=== PATIENT | female | born 1950 | race Caucasian/White ===

== ENCOUNTER 2019-04-01 11:26 | Inpatient (IN) | payer OTHER, BC ==
[~2019-04-01] VITALS: Ht 152.4 cm; Wt 65.3 kg
[2019-04-01] MEDS ORDERED: HYDROCHLOROTHIA25 MG (12:02)
[2019-04-01] MEDS ORDERED: OSEL75CA (12:02)
[2019-04-01] MEDS ORDERED: PROAIR RESPICL90 MCG (12:02)
[2019-04-01] MEDS ORDERED: SPIRIVA RESPIMAT4 G1 (12:02)
[2019-04-01] MEDS ORDERED: ACETYLCYST200 MG/11 PO (12:03)
--- NOTE | 2019-04-01 12:06 | NUR ---
PACIENTE LLEGA EN AMBULACINA CON MASK DE OXIGENO A 2 L/MIN REFIERE INFLUENZA B EL CUAL ES RECIBIDO POR EL DR. ANGEL Y SE ACOMODA EN GIOVANNY K1 CON MONIOTR CARDIACO .
--- NOTE | 2019-04-01 13:16 | NUR ---
PTE EVALUADA POR EL DR ANGEL QUIEN [place]DE[place] EL [place]. SE ORIENTA SOBRE EL MISMO, LO CUAL REFIERE ENTENDER. SE REALIZAN PRUEBAS DE LBAORATORIO Y SE ADMINISTRAN MEDICAMENTOS [place] ORDEN MEDICA Y SIGUIENDO MEDIDAS ASEPTICAS. SE CONECTA A MONITOR CARDIACO Y OXIMETRIA DE P[place] ORDEN EMDICA Y SIGUIENDO MEDIDAS ASEPTICAS. TERAPIAS RESPIRATORIAS Y ABGS NOTIFICADOS A MS CHIU A LAS 12:23PM. SE MANTIENE BAJO OBSERVACION.
== END 2019-04-06 19:13 | disposition home or self-care (01) | DRG 194 ==
LOC: ER 11:26 → SEC-K 16:36 → MEDJ 16:36 → MEDI 04-02 02:00 → MEDJ 04-02 02:53
PROVIDERS: ADMIT Internal Medicine
PROC: 4A033R1 Measurement of Arterial Saturation, Peripheral, Percutaneous Approach (ICD-10-PCS; principal; 2019-04-01)
PROC: 3E0F7GC Introduction of Other Therapeutic Substance into Respiratory Tract, Via Natural or Artificial Opening (ICD-10-PCS; 2019-04-01)
PROC: 8E0ZXY6 Isolation (ICD-10-PCS; 2019-04-01)
DX: J10.1 Influenza due to other identified influenza virus with other respiratory manifestations (principal); J44.1 Chronic obstructive pulmonary disease with (acute) exacerbation; J45.41 Moderate persistent asthma with (acute) exacerbation; C34.81 Malignant neoplasm of overlapping sites of right bronchus and lung; R09.02 Hypoxemia; F17.210 Nicotine dependence, cigarettes, uncomplicated